=== PATIENT | male | born 1940 | race Caucasian/White ===

== ENCOUNTER → 2017-01-26 | Outpatient (CLI) | payer MEDICARE ==
[~2017-01-26] MED LIST: ASA325 MG PO; AUGMENTIN875 MG PO; CELEBREX200 MG PO; COLACE-DPS100 MG PO; HYDROCODONE 5MG/5 MG PO; INVANZ1 GM IV; MAPAP PM (TYLEN1 TAB PO; MELATIN3 MG PO; MIRALAX PACKET17 GM PO; MYCELEX TROCHE10 MG PO; OMEGA-3 DPS1000 MG PO; PEPCID DPS20 MG PO; PLAVIX75 MG PO; THERA1 EACH PO; TOPROL XL100 MG PO; TYLENOL DPS325 MG PO; VITAMIN C1000 MG PO; VITAMIN D31000 UNIT PO; VITAMIN E400 UNIT PO; ZESTORETIC 20/11 TAB PO; ZOCOR DPS40 MG PO; ZOFRAN ODT4 MG PO
== END | disposition home or self-care (01) ==
LOC: RAD.S 14:19
DX: I73.9 Peripheral vascular disease, unspecified (principal)